=== PATIENT | female | born 1980 ===

== ENCOUNTER 2024-08-09 06:35 | Day surgery (SDC) | payer OTHER ==
[2024-08-09] MEDS ORDERED: CIPROFLOXACIN IN 5 % DEXTROSE 400 MG/200 ML PIGGYBAG IV ONE (08:48)
[2024-08-09] MEDS ORDERED: CHLORHEXIDINE GLUCONATE 120 ML BOTTLE TOP ONE (10:13)
[2024-08-09] MEDS ORDERED: POVIDONE-IODINE 118 ML BOTT TOP ONE (10:13)
[2024-08-09] MEDS ORDERED: BUPIVACAINE HCL/MPF 0.5% 30ML VIAL ONE (10:13)
[2024-08-09] MEDS ORDERED: LIDOCAINE HCL 1%/EPINEPHRINE 20ML VIAL IJ ONE (10:13)
[2024-08-09] MEDS ORDERED: HEMOSTATIC MATRIX WITH THROMBIN KIT TOP ONE (11:59)
[2024-08-09] MEDS ORDERED: SURGIFLO APPLICATOR 1 EACH APPL TOP ONE (12:00)
[2024-08-09] MEDS ORDERED: MORPHINE SULFATE 4 MG/ML VIAL IV ONE (13:50)
[2024-08-09] MEDS ORDERED: ACETAMINOPHEN-1 EAC2 PO (16:30)
[2024-08-09] MEDS ORDERED: KETO10TA2 PO (16:32)
== END 2024-08-09 17:35 | disposition home or self-care (01) ==
LOC: CIR.AMB 06:35
PROVIDERS: ATTEND Obstetrics & Gynecology
DX: N70.11 Chronic salpingitis (principal); R10.2 Pelvic and perineal pain; N73.6 Female pelvic peritoneal adhesions (postinfective); N83.12 Corpus luteum cyst of left ovary; D27.1 Benign neoplasm of left ovary; N83.02 Follicular cyst of left ovary; N83.11 Corpus luteum cyst of right ovary; Z88.0 Allergy status to penicillin